=== PATIENT | female | born 1995 | race Caucasian/White ===

== ENCOUNTER 2017-02-12 14:30 | Emergency (ER) | payer OTHER ==
[2017-02-12 15:12] VITALS: BP 130/79; PULSE 73; RESP 16; TEMP 98.4; O2SAT 97
--- NOTE | 2017-02-12 15:17 | UCPHY ---
H & P Patient Type: New Chief Complaint Nursing Narrative: PT. states was stuck by suture needle rt middle finger yesterday aprox 1430. Pt. states source no hx of communicable diseases. Time Seen by Provider: 02/12/17 15:09 HPI/ROS: CHIEF COMPLAINT: Exposure HISTORY OF PRESENT ILLNESS: The patient is a 21-year-old healthy female who works at the [employer] office. She was accidentally stuck yesterday by suture needle. she is low risk. The patient has no known communicable diseases. She has no complaints at this time. REVIEW OF SYSTEMS: Constitutional: denies: chills, fever, recent illness, recent injury EENTM: denies: blurred vision, double vision, nose congestion Respiratory: denies: cough, shortness of breath Cardiac: denies: chest pain, irregular heart rate, lightheadedness, palpitations Gastrointestinal/Abdominal: denies: abdominal pain, diarrhea, nausea, vomiting, blood streaked stools Genitourinary: denies: dysuria, frequency, hematuria, pain Musculoskeletal: denies: joint pain, muscle pain Skin: denies: lesions, rash, jaundice, bruising Neurological: denies: headache, numbness, paresthesia, tingling, dizziness, weakness Hematologic/Lymphatic: denies: blood clots, easy bleeding, easy bruising Immunologic/allergic: denies: HIV/AIDS, transplant EXAM: GENERAL: Well-appearing, well-nourished and in no acute distress. HEAD: Atraumatic, normocephalic. EYES: Pupils equal round and reactive to light, extraocular movements intact, sclera anicteric, conjunctiva are normal. ENT: TMs normal, nares patent, oropharynx clear without exudates. Moist mucous membranes. NECK: Normal range of motion, supple without lymphadenopathy or JVD. LUNGS: Breath sounds clear to auscultation bilaterally and equal. No wheezes rales or rhonchi. HEART: Regular rate and rhythm without murmurs, rubs or gallops. ABDOMEN: Soft, nontender, normoactive bowel sounds. No guarding, no rebound. No masses appreciated. BACK: No CVA tenderness, no spinal tenderness, step-offs or deformities EXTREMITIES: Normal range of motion, no pitting or edema. No clubbing or cyanosis. NEUROLOGICAL: Cranial nerves II through XII grossly intact. Normal speech, normal gait. 5/5 strength, normal movement in all extremities, normal sensation PSYCH: Normal mood, normal affect. SKIN: Warm, dry, normal turgor, no visible rashes or lesions. Source: Patient Exam Limitations: No limitations - Personal History LMP (Females 10-55): IUD In Place - Medical/Surgical History Hx Asthma: No Hx Chronic Respiratory Disease: No Hx Diabetes: No Hx Cardiac Disease: No Hx Renal Disease: No Hx Cirrhosis: No Hx Alcoholism: No Hx HIV/AIDS: No Hx Splenectomy or Spleen Trauma: No Other PMH: Med hx-depression/anxiety. Surg-wisdom teeth - Family History Significant Family History: No pertinent family hx - Social History Smoking Status: Never smoked Alcohol Use: Sober Drug Use: None Constitutional: Initial Vital Signs Temperature (C) 36.9 C 02/12/17 14:45 Heart Rate 73 02/12/17 14:45 Respiratory Rate 16 02/12/17 14:45 Blood Pressure 130/79 H 02/12/17 14:45 O2 Sat (%) 97 02/12/17 14:45 O2 Delivery Mode Room Air Allergies/Adverse Reactions: No Known Allergies Allergy (Verified 02/12/17 14:58) Home Medications: Medication Instructions Recorded Ativan 02/12/17 Lexapro 02/12/17 Spironolactone 02/12/17 Medical Decision Making ED Course/Re-evaluation: Patient is low risk non [facility]. Appropriate lab work has been ordered. No prophylaxis desired or indicated at this time. We discussed follow-up and indications for returning. Differential Diagnosis: Partial list of the Differential diagnosis considered include but were not limited to; exposure, laceration, puncture and although unlikely based on the history and physical exam, I also considered infection, non accidental trauma. I discussed these differential diagnoses and the plan with the patient as well as the usual and expected course. The patient understands that the diagnosis is provisional and that in medicine we are not always correct and that further workup is often warranted. Usual and customary warnings were given. All of the patient's questions were answered. The patient was instructed to return to the emergency department should the symptoms at all worsen or return, otherwise to followup with the physician as we discussed. - Data Points Laboratory Results: 02/12/17 15:28 Hep Bs Antibody Pending Hepatitis C Antibody NEGATIVE (NEGATIVE) HIV 1&2 Antibody NEGATIVE (NEGATIVE) Departure - Departure Disposition: Home, Routine, Self-Care Clinical Impression: Accidental needlestick injury with exposure to body fluid Condition: Fair Instructions: Postexposure Prophylaxis (ED) Referrals: NONE *PRIMARY CARE P,. [Primary Care Provider] - As per Instructions MORENA RIVERA [Non Staff Provider ()] - As per Instructions Stand Alone Forms: Work Comp Follow Up - PQRS PQRS Measurement: Not applicable
[2017-02-12 22:58] LABS: HEPATITIS B SURFACE ANTIBODY INDETERMINATE (NEGATIVE)
== END 2017-02-12 15:48 | disposition home or self-care (01) ==
LOC: CED 14:30 → EDSTATUS 14:30 → CED 15:48
DX: S61.232A Puncture wound without foreign body of right middle finger without damage to nail, initial encounter (principal); W46.0XXA Contact with hypodermic needle, initial encounter
CPT/HCPCS: 99204-PO; G0463-PO; G0472